=== PATIENT | female | born 1950 | race Caucasian/White ===

== ENCOUNTER → 2022-07-13 | Outpatient (CLI) | payer MEDICARE ==
--- NOTE | 2022-07-14 04:43 | MR ---
EXAMINATION TYPE: MR iac wo/w con DATE OF EXAM: 07/13/2022 COMPARISON: None HISTORY: Headaches. CONTRAST: Standard multiplanar, multisequence MRI departmental protocol images were obtained without contrast a nd with 8 mL intravenous Gadavist gadolinium contrast. There is cerebral cortical atrophy. There is no mass effect or midline shift. No sign of intracranial hemorrhage. Diffusion images show no evidence of acute infarct. The sella turcica is normal. Corpus callosum is intact. On the T2 and FLAIR images there are scattered white matter high signal foci giovani suring up to 1 cm in both cerebral hemispheres. Most of the lesions are less than 5 mm. Total number is approximately 25. There is a single 3 mm focus in the left side of the renea. Thin sections through the posterior fossa show normal internal auditory canals. The acoustic nerve an d vestibular nerve appear normal. No sign of cerebellopontine angle mass. No pathologic enhancement i n the posterior fossa. IMPRESSION: Normal MRI scan of the posterior fossa. Scattered white matter high signal foci in both humeral hemispheres that could relate to microvascula r ischemia or demyelinating disease. No cortical infarct.
== END | disposition home or self-care (01) ==
LOC: RADMRIMAIN 11:07
PROVIDERS: ATTEND Neurological Surgery
DX: G93.9 Disorder of brain, unspecified (principal)
CPT/HCPCS: 70553; A9585

== ENCOUNTER → 2023-05-27 | Outpatient (CLI) | payer MEDICARE ==
--- NOTE | 2023-05-27 09:43 | CT ---
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 FINDINGS: Ventricles and basal cisterns and sulci overlying the convexities are consistent with the patient's a ge. There is no midline shift or mass effect. Calvarium intact. Orbits are symmetric. Sinuses are clear. No obvious soft tissue mass is seen. On this may not be incl uded in the [id number]. IMPRESSION: NO ACUTE PROCESS. NO SKULL BASE MASSES DEFINITIVELY SEEN BY NONCONTRAST CT SCAN CORRELATE WITH PATIEN T'S HISTORY AND IF NECESSARY WITH MRI.
== END | disposition home or self-care (01) ==
LOC: RADCTMAIN 08:23
PROVIDERS: ATTEND Neurological Surgery
DX: C41.0 Malignant neoplasm of bones of skull and face (principal)
CPT/HCPCS: 70450